=== PATIENT | female | born 1995 | race African-American/Black ===

== ENCOUNTER 2017-05-18 06:05 | Emergency (ER) | payer BC, OTHER ==
[~2017-05-18] VITALS: Ht 170.2 cm; Wt 85.0 kg
[~2017-05-18 06:05] MED LIST: ALBUTEROL17 GM INH; ANUSOL SUPP1 SUPP PR; BACTRIM DS TABL1 TA1 PO; BENTYL20 MG PO; BENZONATATE PO; BIRTH CONTROL PILL; CHRONULAC10 GM/15 M DOB; DULCOLAX10 MG/SUPP RC; IBUPROFEN600 MG PO; KEFLEX500 M1 PO; MOTRIN600 MG PO; PREDNISONE PO; SENNA S TABLET1 TAB PO; SUDAFED30 M1 PO; VICODIN 5/1 TAB 5/50 PO; ZITHROMAX PO; [UNRECOGNIZED DRUG - OTHER]
[2017-05-18 07:53] LABS: INFLUENZA A NEG (NEG); INFLUENZA B NEG (NEG)
== END 2017-05-18 08:15 | disposition home or self-care (01) ==
LOC: CED 06:05
PROVIDERS: Nurse Practitioner
DX: J06.9 Acute upper respiratory infection, unspecified (principal); J45.909 Unspecified asthma, uncomplicated; F90.9 Attention-deficit hyperactivity disorder, unspecified type; F17.210 Nicotine dependence, cigarettes, uncomplicated
CPT/HCPCS: 87651; 87804; 99283

== ENCOUNTER 2017-05-19 20:24 | Emergency (ER) | payer BC, OTHER ==
[~2017-05-19] VITALS: Ht 171.4 cm; Wt 97.5 kg
--- NOTE | ~2017-05-19 | CR72 ---
[facility] A Service of [facility] & [facility] RADIOLOGY TEXT RESULTS PATIENT: LINWOOD CAPELLAN LOCATION: [facility] : [birth year] UNIT #: [id number] AGE: [address]: French Martin MD SEX: F ORDER DR: [id number] [facility] [address] [place], [place] [address] [id number] E MR#: [id number] Acc #: [id number] NAME: LINWOOD CAPELLAN : 1995 SEX: F STUDY DATE/TIME: 05/19/2017 22:11 UNIT: [facility] ROOM: STUDY DESCRIPTION: CR Chest Single View Portable Attending Physician: French Martin M.D. Ordering Physician: French Martin M.D. Primary Care Physician: Jonas King M.D. MEDICAL IMAGING REPORT This report is preliminary unless electronic signature is present EXAM Single view of the chest dated 05/19/2017 COMPARISON Chest 2 views dated 08/30/2015. HISTORY Shortness of air and chest pressure for the last 3 days. FINDINGS Single view of the chest was obtained. A single AP portable view of the chest shows both lungs to be clear. The heart is normal in size. The mediastinal contour is normal. No significant bone abnormalities are seen. IMPRESSION Normal portable chest. Dictated by... Carrol Armijo M.D. THIS IS AN ELECTRONICALLY VERIFIED REPORT Carrol Armijo M.D. at 05/20/2017 5:06 PM CPR/df TD: 05/20/2017 07:54 JOB #: [id number] MEDICAL IMAGING REPORT Page 1 of 1 COPY
== END 2017-05-19 22:45 | disposition home or self-care (01) ==
LOC: CED 20:24
DX: J06.9 Acute upper respiratory infection, unspecified (principal); J45.909 Unspecified asthma, uncomplicated; F17.200 Nicotine dependence, unspecified, uncomplicated
CPT/HCPCS: 71010; 99283